=== PATIENT | female | born 1960 | race Caucasian/White ===

== ENCOUNTER 2021-02-11 16:03 | Emergency (ER) | payer MEDICAID ==
[~2021-02-11] VITALS: Ht 167.6 cm; Wt 86.2 kg
[2021-02-11 16:22] VITALS: BP 143/93
--- NOTE | 2021-02-11 16:29 | NUR ---
PT AMB TO BED 10
--- NOTE | 2021-02-11 16:34 | NUR ---
60 Y/O FEMALE STATES SHE FELL ABOUT 30 MINUTES AGO AND FELL ONTO HER LEFT WRIST. DEFORMITY NOTED TO LEFT WRIST WITH MODERATE SWELLING. RADIAL PULSES PRESENT AT THIS TIME. CMS+, PT REPORTS 5/10 PAIN. CAP REFILL <3 PMH: HTN, HYPOTHYROIDISM
[2021-02-11] MEDS ORDERED: HYDROcodone/APAP 7.5/325 MG 1 TAB PO ONE (16:40)
[2021-02-11] MEDS ORDERED: ONDANSETRON 4 MG ODT PO ONE (16:40)
[2021-02-11] MEDS ORDERED: ACET-8386 PO (17:31)
[2021-02-11] MEDS ORDERED: IBUP-2213 PO (17:31)
--- NOTE | 2021-02-11 17:42 | NUR ---
PT PLACED IN LEFT ARM SUGARTONG SPLINT AND LEFT SHOULDER SLING CMS WNL BEFORE AND AFTER. PA NOTIFIED
[2021-02-11 17:57] VITALS: BP 132/76
--- NOTE | 2021-02-11 17:57 | NUR ---
Patient discharged with v/s stable. Written and verbal after care instructions given and explained. Patient alert, oriented and verbalized understanding of instructions. Ambulatory with steady gait. All questions addressed prior to discharge. ID band removed. Patient advised to follow up with PMD. Rx of NORCO, MOTRIN given. Patient educated on indication of medication including possible reaction and side effects. Opportunity to ask questions provided and answered.
== END 2021-02-11 17:57 | disposition home or self-care (01) ==
LOC: MED 16:03
DX: S52.592A Other fractures of lower end of left radius, initial encounter for closed fracture (principal); W18.39XA Other fall on same level, initial encounter; Y93.E8 Activity, other personal hygiene; Y92.090 Kitchen in other non-institutional residence as the place of occurrence of the external cause; Y99.8 Other external cause status
CPT/HCPCS: 29125; 73110; 99283; Q0162